=== PATIENT | female | born 1935 | race Asian ===

== ENCOUNTER 2019-07-22 14:31 | Inpatient (IN) | payer OTHER ==
[~2019-07-22] VITALS: Ht 157.5 cm; Wt 49.0 kg
[2019-07-22 15:31] LABS: Basophils # (auto) 0 10 ^3/uL (0-0.2); Eosinophils # (auto) 0.2 10 ^3/uL (0-0.8); Lymphocytes # (auto) 0.5 10 ^3/uL (0.4-5.4); Mean Corpuscular Hgb Conc. 33.6 g/dL (32.0-36.0); Nucleated Red Blood Cells % 0.1 %; Red Cell Distribution Width 16.4 % (11.8-14.3)
[2019-07-22 15:35] LABS: Basophils % (auto) 0.4 % (0.0-2.0); Eosinophils % (auto) 2.4 % (0.0-7.0); Hematocrit 32.7 % (36.0-46.0); Lymphocytes % (auto) 5.6 % (10.0-50.0); Mean Corpuscular Volume 95.2 fL (80.0-100.0); Monocytes # (auto) 0.4 10 ^3/uL (0-1.3); Monocytes % (auto) 4.6 % (0.0-12.0); Neutrophils # (auto) 8.2 10 ^3/uL (1.6-8.6); Platelet Count (auto) 166 10^3/uL (140-450); Red Blood Cells 3.43 10^6/uL (4.0-5.20); White Blood Cell 9.4 10^3/uL (4.4-10.8)
[2019-07-22 15:43] LABS: Albumin 2.1 g/dL (3.4-5.0); Anion Gap 7 (5-15); Carbon Dioxide 25 mmol/L (21-32); Chloride 105 mmol/L (98-107); Glucose 76 mg/dL (74-106); Potassium 4.4 mmol/L (3.5-5.1); Sodium 137 mmol/L (136-145)
[2019-07-22 15:48] LABS: Alanine Aminotransferase 15 U/L (13-56); Alkaline Phosphatase 100 U/L (45-117); Aspartate Aminotransferase 27 U/L (15-37); BUN/Creatinine Ratio 40.9; Bilirubin, Total 0.5 mg/dL (0.2-1.0); Blood Urea Nitrogen 27 mg/dL (7-18); GFR African American 109 mL/min; GFR Non-African American 90 mL/min; Total Protein 6.2 g/dL (6.4-8.2)
[2019-07-22] MEDS ORDERED: SODIUM CHLORIDE 0.9% 1,000 ML IV ONE (16:12)
[2019-07-22 16:30] LABS: Magnesium 1.8 mg/dL (1.6-2.6)
[2019-07-22] MEDS ORDERED: IOHEXOL 300 MG/ML 100ML BOTTLE IJ ONE (16:53)
[2019-07-22 17:27] LABS: Urine Bacteria MANY /hpf (None Seen); Urine Blood Negative /uL (Negative); Urine Specific Gravity 1.015 (1.001-1.035); Urine WBC 25 /hpf (0 - 5)
[2019-07-22] MEDS ORDERED: VANCOMYCIN HCL 500MG/5ML ORAL SOL PO ONE (18:00)
[2019-07-22] MEDS ORDERED: metroNIDAZOLE 500MG/100ML 100 ML IV ONE (18:00)
[2019-07-22] MEDS ORDERED: ONDANSETRON HCL 4 MG/2 ML VIAL IV PRN (20:15)
[2019-07-22] MEDS ORDERED: NITROGLYCERIN 0.4 MG SL TAB SL PRN (20:15)
[2019-07-22] MEDS ORDERED: ACETAMINOPHEN 500 MG TAB PO PRN (20:15)
[2019-07-22] MEDS ORDERED: MORPHINE SULF INJ 2 MG/ML SYRINGE 1ML IV PRN ×2 (20:15)
[2019-07-22] MEDS: D5W/SOD CHLO 0.9% 1,000 ML IV SCH (20:47)
[2019-07-22] MEDS: metroNIDAZOLE 500MG/100ML 100 ML IV SCH (21:37)
[2019-07-22] MEDS: VANCOMYCIN HCL 125MG/5ML ORAL SOL PO SCH (21:42)
[2019-07-22 22:00] VITALS: BP 145/69
--- NOTE | 2019-07-22 23:00 | NUR ---
Telemetry admit from ER [id number] admitted to Telemetry unit after SBAR received. Patient oriented to Kavitha Crowder RN primary RN, unit, room, bed, and unit policies regarding patient care and visiting hours. Patient now on continuous telemetry monitoring, tele box # [id number] and telemetry reading on arrival to unit is SR. Patient weighed by bedscale and encouraged to call if they need something. All questions and concerns addressed, patient verbalized understanding, will continue to monitor Note: []
--- NOTE | 2019-07-22 23:05 | NUR ---
Noted macerations on left labia and left buttocks present on admission. Pictures taken for reference. Wound consult in place. Cleansed wound with cleanser, z-guard applied and covered sacrum with optifoam
[2019-07-23 00:34] VITALS: BP 145/69
[2019-07-23] MEDS ORDERED: CLOP75TA28 PO (01:07)
[2019-07-23] MEDS ORDERED: IRBE150T26 PO (01:07)
[2019-07-23] MEDS ORDERED: ATOR80TA PO (01:07)
[2019-07-23] MEDS ORDERED: PANT40TA2 PO (01:07)
[2019-07-23] MEDS ORDERED: CYAN100L PO (01:07)
[2019-07-23] MEDS ORDERED: SPIR50TA5 PO (01:07)
[2019-07-23] MEDS ORDERED: METF-370 PO (01:07)
[2019-07-23] MEDS ORDERED: FERR-7 PO (01:07)
[2019-07-23] MEDS ORDERED: ASPI-404 PO (01:07)
[2019-07-23] MEDS ORDERED: CARV25TA PO (01:07)
[2019-07-23 05:00] VITALS: BP 153/69
[2019-07-23 05:32] LABS: Basophils # (auto) 0 10 ^3/uL (0-0.2); Basophils % (auto) 0.2 % (0.0-2.0); Eosinophils # (auto) 0.1 10 ^3/uL (0-0.8); Hematocrit 27.7 % (36.0-46.0); Hemoglobin 9.4 g/dL (12.2-16.2); Lymphocytes # (auto) 0.9 10 ^3/uL (0.4-5.4); Lymphocytes % (auto) 17.5 % (10.0-50.0); Mean Corpuscular Hemoglobin 32.2 pg (28.0-32.0); Mean Corpuscular Hgb Conc. 34.1 g/dL (32.0-36.0); Mean Corpuscular Volume 94.5 fL (80.0-100.0); Monocytes # (auto) 0.4 10 ^3/uL (0-1.3); Monocytes % (auto) 8.5 % (0.0-12.0); Neutrophils # (auto) 3.5 10 ^3/uL (1.6-8.6); Neutrophils % (auto) 70.8 % (37.0-80.0); Platelet Count (auto) 140 10^3/uL (140-450); Red Blood Cells 2.93 10^6/uL (4.0-5.20); Red Cell Distribution Width 16.4 % (11.8-14.3); White Blood Cell 4.9 10^3/uL (4.4-10.8)
[2019-07-23 05:50] LABS: Calcium 7.5 mg/dL (8.5-10.1); Potassium 3.5 mmol/L (3.5-5.1)
[2019-07-23] MEDS: VANCOMYCIN HCL 125MG/5ML ORAL SOL PO SCH ×2 (05:58→12:12)
[2019-07-23] MEDS: metroNIDAZOLE 500MG/100ML 100 ML IV SCH ×3 (05:58→21:57)
[2019-07-23] MEDS: D5W/SOD CHLO 0.9% 1,000 ML IV SCH (06:13)
--- NOTE | 2019-07-23 07:35 | NUR ---
Opening Shift Note Assumed care of patient. Pt is awake, alert and Ox4, resting in bed. No S/S of respiratory distress/SOB. Pt reports no pain, nausea, or vomiting. On room air and bedrest. Bed in lowest position, brakes are locked, side rails up x2, call light within reach. Welsh is patent and on bed frame. POC discussed with patient. Patient is instructed to call for assistance as needed. Will continue to monitor for changes Q1hr and PRN.
[2019-07-23] MEDS: cefTRIAXone 1GM/50ML D5W 50 ML IV SCH (08:53)
--- NOTE | 2019-07-23 08:55 | NUR ---
Family updates Received call from pt's daughter. She updated this RN on pt recent medical history such as pt had three stents placed mar 2019, Oct 17, 2019 at [facility]. pt fell suffered pelvic fracture, colon resection was done during that hospital stay at [facility]. pt ended up in rehab facility and discharged home 07/16 and fell out of bed 07/18 per daughter report.
[2019-07-23 09:00] VITALS: BP 135/58
[2019-07-23] MEDS: HYDROcodone-ACET 5/325MG TAB PO PRN (11:17)
--- NOTE | 2019-07-23 11:42 | NUR ---
IMPORT/EXPORT ANALYST AT BEDSIDE.
--- NOTE | 2019-07-23 11:45 | NUR ---
WOUND CARE NOTE: IN TO SEE PATIENT AT THIS TIME PER WOUND CARE CONSULT REQUEST. PATIENT NOTED UPON ADMIT TO HAVE WOUNDS. ALL WOUNDS PHOTOGRAPHED BY BEDSIDE NURSE FOR REFERENCE. PATIENT ADMITTED TO [facility] WITH DIAGNOSIS OF ACUTE CYSTITIS. CURRENT OWEN SCORE IS 14. PATIENT IS ABLE TO ASSIST WITH HER TURNING/REPOSITIONING. PATIENT HAS HISTORY WITH COLON RESECTION FOR CA, HTN, DM2, PELVIC FRACTURE, MS. SHE WAS POSITIVE FOR C-DIFFICILE, CONTINUES TO HAVE MULTIPLE BOUTS WITH INCONTINENT STOOL. SHE IS NOTED TO HAVE MASD/INTERTRIGO TO PERINEUM, SACRUM/BUTTOCKS. SKIN IS BRIGHT TO DARK RED. SHE HAS MULTIPLE AREAS TO THE LEFT BUTTOCK/SACRUM WITH DTI. SHE HAS MULTIPLE SERUM FILLED BLISTERS OVER THE DTI, ONE OPEN BLISTER-STAGE 2 PRESSURE INJURY TO THE LEFT SACRUM. APPLIED ZGUARD, OPTIFOAM GENTLE SACRAL DRESSING. PATIENT HAS INTACT SURGICAL SCARS FROM HER SURGERY LAST MONTH TO THE ABDOMEN. SKIN IS INTACT, SCARS ARE WELL APPROXIMATED. RECOMMEND: FREQUENT TURN SCHEDULE Q HOURS, PRN CONDITION PERMITS, WITH PRESSURE REDISTRIBUTION USING PILLOWS/WEDGES, BID/PRN APPLICATION WITH MOISTURE BARRIER CREAM, OPTIFOAM GENTLE SACRAL DRESSING, SPECIALTY AIR MATTRESS, SKIN/WOUND CARE PLAN, CONTINUED MONITORING BY WOUND CARE TEAM. Addendum: 07/23/19 at 1443 by Sophie Moses RN Amended: Links added.
--- NOTE | 2019-07-23 12:10 | NUR ---
MD BRENDAN WEST.
[2019-07-23 13:00] VITALS: BP 131/54
[2019-07-23 16:25] VITALS: BP 135/60
--- NOTE | 2019-07-23 17:08 | NUR ---
PATIENT TRANSFERRED TO AIR MATTRESS BED. SCD'S ON AND IN PLACE, PILLOWS ELEVATED FOR COMFORT.
[2019-07-23] MEDS ORDERED: ENOXAPARIN SOD 40 MG/0.4 ML SYRINGE SC ONE (17:30)
--- NOTE | 2019-07-23 19:12 | NUR ---
CARE ENDORSED TO ETHEL FRANKS.
--- NOTE | 2019-07-23 19:25 | NUR ---
Opening Shift Note Received report from Yecenia FRANKS. Assumed care of patient, awake and alert. No S/S of distress/SOB or pain. Instructed on POC and to call for assist PRN. Fall precaution measures in place, will continue to monitor for changes Q1hr and PRN.
[2019-07-23] MEDS ORDERED: TEMAZEPAM 15 MG CAP PO ONE (21:15)
[2019-07-23] MEDS: CARVEDILOL 12.5 MG TAB PO SCH (21:56)
[2019-07-23 22:14] VITALS: BP 156/73
[2019-07-24 04:46] VITALS: BP 151/66
[2019-07-24] MEDS: metroNIDAZOLE 500MG/100ML 100 ML IV SCH ×2 (05:52→13:59)
--- NOTE | 2019-07-24 07:50 | NUR ---
Opening Shift Note Assumed care of patient. Pt is awake, alert and oriented x4, resting in bed. No S/S of respiratory distress. Respirations are regular and non-labored. Pt reports no pain. Bed in lowest position, brakes are locked, side rails up x2, call light within reach. Welsh is patent and on bed frame. Pt is on Room air. SCD is applied. POC discussed with patient. Patient is instructed to call for assistance as needed. Will continue to monitor for changes Q1hr and PRN.
[2019-07-24 08:00] VITALS: BP 142/68
[2019-07-24] MEDS: cefTRIAXone 1GM/50ML D5W 50 ML IV SCH (09:18)
[2019-07-24] MEDS: CARVEDILOL 12.5 MG TAB PO SCH ×2 (09:19→22:00)
[2019-07-24] MEDS: ENOXAPARIN SOD 40 MG/0.4 ML SYRINGE SC SCH (09:20)
--- NOTE | 2019-07-24 11:15 | NUR ---
Patient had a bowel movement , cleansed patient's buttocks with warm washcloths, patted dry with washcloth , applied Zgaurd and Optifoam dressing. Changed bed sheets, with the help of GOLDEN Murdock. Patient tolerated well. Will continue to monitor Q 1HR and as needed.
--- NOTE | 2019-07-24 11:53 | NUR ---
Pain reassessment Patient reports decrease in pain level to 1 out of 10. Will continue to monitor.
[2019-07-24 12:00] VITALS: BP 149/73
[2019-07-24] MEDS: HYDROcodone-ACET 5/325MG TAB PO PRN (12:28)
--- NOTE | 2019-07-24 12:50 | NUR ---
DR. CARDONA AT BEDSIDE
--- NOTE | 2019-07-24 14:46 | NUR ---
Nutrition Assessment Notes Please refer to link for full assessment notes. Est energy needs: 0069-2726 kcals (23-25 kcal/kgBW) Est protein needs: 65-108 gms/day (1.2-2.0 gm/kgBW) d/t wounds Will continue to monitor and reassess prn. Addendum: 07/24/19 at [address] Amended: Links added.
[2019-07-24 16:48] VITALS: BP 112/55
--- NOTE | 2019-07-24 19:01 | NUR ---
Closing Note Patient is comfortably siting up in bed , no s/s of distress/sob noted/stated. Bed at lowest locked position and call light within reach. Will endorse care to NOC RN.
[2019-07-24 22:00] VITALS: BP 143/68
[2019-07-24] MEDS: TEMAZEPAM 15 MG CAP PO PRN (22:01)
[2019-07-25 05:00] VITALS: BP 158/81
--- NOTE | 2019-07-25 07:25 | NUR ---
Opening Note Patient is comfortably sitting up in bed, eating breakfast. Bed at lowest locked position and call light within reach. No c/o pain at this time, will continue to monitor Q1hr and as needed.
[2019-07-25 08:00] VITALS: BP 112/55
[2019-07-25] MEDS: cefTRIAXone 1GM/50ML D5W 50 ML IV SCH (08:34)
[2019-07-25] MEDS: CARVEDILOL 12.5 MG TAB PO SCH ×2 (08:35→21:37)
[2019-07-25] MEDS: ENOXAPARIN SOD 40 MG/0.4 ML SYRINGE SC SCH (08:35)
[2019-07-25 09:00] VITALS: BP 131/77
--- NOTE | 2019-07-25 12:56 | NUR ---
BM Patient had a bowel movement , cleansed patient's buttocks with warm washcloths, patted dry with washcloth , applied Zgaurd and Optifoam dressing. Changed bed sheets, with the help of RETRIMMER. Patient tolerated well. Will continue to monitor Q 1HR and as needed.
[2019-07-25 13:00] VITALS: BP 148/70
[2019-07-25] MEDS: HYDROcodone-ACET 5/325MG TAB PO PRN (15:17)
--- NOTE | 2019-07-25 15:19 | NUR ---
Patient c/o lower back pain, rates it /, will medicate per MD orders.
[2019-07-25 17:28] VITALS: BP 165/75
--- NOTE | 2019-07-25 17:44 | NUR ---
patient's blood pressure is 165/75, no s/s of distress/sob noted/stated. No c/o pain. Paged entry level receptionist hospitalist. Awaiting call aback.
[2019-07-25] MEDS: LABETALOL HCL 5 MG/ML 4ML SYRINGE IV PRN (18:47)
--- NOTE | 2019-07-25 19:40 | NUR ---
Opening Shift Note Assumed care of patient, awake and alert. No S/S of distress/SOB or pain. Fall and safety precautions in place. Call light within reach and able to use. Instructed on POC and to call for assist PRN, patient verbalized understanding and in agreement. Will continue to monitor for changes Q1hr and PRN.
--- NOTE | 2019-07-25 19:42 | NUR ---
BM Patient had a bowel movement , cleansed patient's buttocks with warm washcloths, patted dry with washcloth , applied Zgaurd and Optifoam dressing. Changed bed sheets, with the help of CARPENTER LABOR SUPERVISOR. Patient tolerated well.
--- NOTE | 2019-07-25 19:42 | NUR ---
Closing Note Patient is comfortably resting in bed, breath sounds are even and unlabored. No c/o pain. No s/s of distress/sob noted/stated. Bed at lowest locked position and call light is within reach. Care endorsed to [facility] GOLDEN Plunkett.
[2019-07-25 22:00] VITALS: BP 152/69
[2019-07-26 05:46] VITALS: BP 144/67
[2019-07-26 06:38] LABS: Basophils # (auto) 0 10 ^3/uL (0-0.2); Basophils % (auto) 0.4 % (0.0-2.0); Eosinophils # (auto) 0.4 10 ^3/uL (0-0.8); Eosinophils % (auto) 6.2 % (0.0-7.0); Hematocrit 31.4 % (36.0-46.0); Hemoglobin 10.8 g/dL (12.2-16.2); Lymphocytes # (auto) 1.1 10 ^3/uL (0.4-5.4); Lymphocytes % (auto) 15.8 % (10.0-50.0); Mean Corpuscular Hemoglobin 31.9 pg (28.0-32.0); Mean Corpuscular Hgb Conc. 34.5 g/dL (32.0-36.0); Mean Corpuscular Volume 92.3 fL (80.0-100.0); Monocytes # (auto) 0.4 10 ^3/uL (0-1.3); Monocytes % (auto) 5.6 % (0.0-12.0); Neutrophils # (auto) 5.1 10 ^3/uL (1.6-8.6); Nucleated Red Blood Cells % 0.1 %; Platelet Count (auto) 151 10^3/uL (140-450); Red Cell Distribution Width 16.1 % (11.8-14.3); White Blood Cell 7.1 10^3/uL (4.4-10.8)
[2019-07-26 06:50] LABS: INR 1.26 (0.9-1.15); Partial Thromboplastin Time 35.2 sec (23.64-32.05)
[2019-07-26 07:39] LABS: BUN/Creatinine Ratio 11.9; Calcium 7.8 mg/dL (8.5-10.1); Magnesium 1.6 mg/dL (1.6-2.6)
[2019-07-26 07:40] LABS: Albumin 1.9 g/dL (3.4-5.0); Bilirubin, Total 0.4 mg/dL (0.2-1.0); Phosphorus 2.1 mg/dL (2.5-4.90); Total Protein 5.7 g/dL (6.4-8.2)
[2019-07-26 07:53] LABS: Potassium 2.8 mmol/L (3.5-5.1)
--- NOTE | 2019-07-26 07:57 | NUR ---
K = 2.8*L as per Laboratory.
--- NOTE | 2019-07-26 07:59 | NUR ---
Paged the hospitalist exceptional needs teacher for the low Potassium level. Waiting for MD to call back.
--- NOTE | 2019-07-26 08:00 | NUR ---
Patient sitting up in bed, eating breakfast. No acute distress noted. On Welsh catheter draining clear, yellowish urine.
[2019-07-26] MEDS: cefTRIAXone 1GM/50ML D5W 50 ML IV SCH (08:02)
--- NOTE | 2019-07-26 08:30 | NUR ---
Patient had a bowel movement in bed. Moderate dark brown, soft, formed stools noted on the pad. GOLDEN Keller and I cleaned the patient. Wound/sore/dry skin noted on the sacral/buttocks area. Skin protectant applied. Changed the pad cair. Reposition the patient for comfort.
[2019-07-26] MEDS: HYDROcodone-ACET 5/325MG TAB PO PRN ×3 (08:38→23:32)
--- NOTE | 2019-07-26 08:38 | NUR ---
Patient stated her buttock/back hurts, pain level at 6/10. [place] 5/325 PO given for pain as ordered.
[2019-07-26 09:00] VITALS: BP 143/66
[2019-07-26] MEDS: CARVEDILOL 12.5 MG TAB PO SCH ×2 (10:29→21:07)
[2019-07-26] MEDS: ENOXAPARIN SOD 30 MG/0.3 ML SYRINGE SC SCH (10:30)
--- NOTE | 2019-07-26 10:45 | NUR ---
Patient sitting up in chair for Physical Therapy. RPT Seamus to come back when patient is ready to go back to bed.
--- NOTE | 2019-07-26 11:10 | NUR ---
Patient back to bed.
--- NOTE | 2019-07-26 12:55 | NUR ---
Dr. Siddiqui at bedside. MD made aware of current K = 2.8*L. Dr. Siddiqui ordered Potassium 20 mEQ IVPB rider once, Potassium Effervescent 50 mEQ tab for five days starting today, NS with Potassium 40mEQ at 75 ml/hr.
[2019-07-26 13:00] VITALS: BP_SYST 110; BP_DIAS 52; BP_DIAS 65
[2019-07-26] MEDS ORDERED: POTASSIUM CHL 20MEQ/100ML 100 ML IV ONE (13:00)
--- NOTE | 2019-07-26 13:18 | NUR ---
Called the Pharmacy to verify the new orders for Potassium.
[2019-07-26] MEDS: POTASSIUM EFFERVESENT TAB 25 MEQ PO SCH (13:30)
[2019-07-26] MEDS: SOD CHL 0.9%/ KCL 40MEQ 1,000 ML IV SCH (13:31)
--- NOTE | 2019-07-26 13:40 | NUR ---
New IV line started on the right wrist, 22 gauge, in one attempt, intact and patent. Patient able to tolerate it.
[2019-07-26 16:53] VITALS: BP 146/77
--- NOTE | 2019-07-26 17:00 | NUR ---
Patient had a bowel movement. Small, soft, formed, brown stools noted. Cleaned the patient.
--- NOTE | 2019-07-26 17:20 | NUR ---
Patient stated her hip and buttock area hurts. [place] 5/325 PO given for pain as ordered.
--- NOTE | 2019-07-26 18:00 | NUR ---
Patient sitting up in bed, eating dinner.
[2019-07-26 19:28] LABS: BUN/Creatinine Ratio 14.9; Potassium 5.2 mmol/L (3.5-5.1)
--- NOTE | 2019-07-26 19:45 | NUR ---
Opening Shift Note Assumed care of patient, awake and alert. No S/S of distress/SOB or pain. Fall and safety precautions in place. Instructed on POC and to call for assist PRN, patient verbalized understanding and in agreement. Call light within reach and able to use. Will continue to monitor for changes Q1hr and PRN.
[2019-07-26] MEDS: TEMAZEPAM 15 MG CAP PO PRN (21:07)
[2019-07-26 22:00] VITALS: BP 127/59
[2019-07-27] MEDS: SOD CHL 0.9%/ KCL 40MEQ 1,000 ML IV SCH (02:07)
[2019-07-27] MEDS: LABETALOL HCL 5 MG/ML 4ML SYRINGE IV PRN ×2 (04:28→17:49)
--- NOTE | 2019-07-27 04:28 | NUR ---
High Blood Pressure Patient's blood pressure 154/71 mm Hg on right arm in semi-fowlers position. Heart rate 82 bpm. Per prn order, labatelol given at this time (see emar for administration). Patient educated on indication, verbalized understanding and in agreement. Will continue to monitor.
[2019-07-27 05:00] VITALS: BP 154/71
--- NOTE | 2019-07-27 05:53 | NUR ---
BP Recheck Patient's blood pressure 148/73; heart rate 87 bpm. Will continue to monitor. Addendum: 07/27/19 at 0554 by ROWDY CAGLE RN RN time correction of recheck: [id number]
[2019-07-27 06:10] LABS: Potassium 5.5 mmol/L (3.5-5.1)
[2019-07-27 06:28] LABS: Calcium 7.7 mg/dL (8.5-10.1)
[2019-07-27 06:39] LABS: BUN/Creatinine Ratio 16.2
--- NOTE | 2019-07-27 07:20 | NUR ---
Opening Shift Note Assumed care of patient, awake and alert. No S/S of distress/SOB or pain. Instructed on POC and to call for assistance as needed, call light within reach. Safety measures in place, bed set to lowest locked position. Will continue to monitor for changes Q1hr and PRN.
[2019-07-27 08:00] VITALS: BP 154/79
[2019-07-27] MEDS: ENOXAPARIN SOD 30 MG/0.3 ML SYRINGE SC SCH (08:58)
[2019-07-27] MEDS: cefTRIAXone 1GM/50ML D5W 50 ML IV SCH (08:59)
[2019-07-27] MEDS: CARVEDILOL 12.5 MG TAB PO SCH ×2 (09:00→21:54)
[2019-07-27] MEDS: HYDROcodone-ACET 5/325MG TAB PO PRN (09:09)
[2019-07-27] MEDS: POTASSIUM EFFERVESENT TAB 25 MEQ PO SCH (09:13)
[2019-07-27] MEDS ORDERED: D5W/SOD CHL 0.45%/KCL 20MEQ 1,000 ML IV SCH (10:30)
[2019-07-27] MEDS ORDERED: GASTROGRAFIN 120 ML SOL ONE (10:35)
[2019-07-27 12:00] VITALS: BP 143/73
--- NOTE | 2019-07-27 12:15 | NUR ---
MD CARDONA AT BEDSIDE UPDATED MD ON PATIENT'S STATUS. INCLUDING POTASSIUM LEVEL OF 5.5. INFORMED HER IV HAS BEEN STOPPED AND PO POTASSIUM WAS HELD. INFORMED HER, PATIENT REFUSED KUB AND MD ORDERED CT WITH ORAL CONTRAST. WILL FOLLOW THROUGH WITH ORDERS.
[2019-07-27] MEDS ORDERED: OMNIPAQUE ORAL SOLN 500ml 12mg/ml PO ONE (12:25)
--- NOTE | 2019-07-27 15:31 | NUR ---
Patient refused to be OOB today after both am and pm attempts. GOLDEN Fisher was notified. Addendum: 07/27/19 at 1532 by BRISSA CASTRO PTT Amended: Links added.
--- NOTE | 2019-07-27 15:36 | NUR ---
assessment re: ss consult disposition Patient is a 84 year old female who is hard of hearing and some what confused. Prior to admission per eli son Ion patient lived home with his and needed assistance. Patient has a fww for home use. Patients PCP is Dr Crisostomo. Per Ion patient will return home with him on discharge and he will transport patient home. I informed Ion he has a right to speak to a director social regarding all care. I informed Ion he has a right to participate in any and all discharge planning. Patient does not have a POA and advanced directive. I have offered Ion information on POA and advanced directives. I informed Ion the advantages and benefits of having an Advanced Directive. Ion verbalized understanding and agreed to discharge plan home on discharge. Addendum: 07/27/19 at 1545 by Steph LOBATO Amended: Links added.
--- NOTE | 2019-07-27 16:00 | NUR ---
PATIENT REFUSED CT SCAN ORDERED BY DR. CARDONA. PAGED DR. BATISTA AND BRENDAN. AWAITING CALL BACK
[2019-07-27 16:58] VITALS: BP 162/77
--- NOTE | 2019-07-27 17:25 | NUR ---
WENT TO ADMINISTER WARFARIN TO PATIENT AND PER PATIENT HE ALREADY ADMINISTERED HOME WARFARIN WHEN MEDICATIONS WERE BROUGHT TO BEDSIDE. INFORMED PATIENT HE WAS NOT SUPPOSE TO TAKE THE MEDICATIONS SAID EARLIER AND PATIENT VERBALIZED UNDERSTANDING. PER PATIENT HE HAS TAKEN HIS WARFARIN REGIMEN ORDERED AND HAS BEEN DOING THIS FOR 11 YEARS. INFORMED PATIENT WE ARE MONITORING HIS INR AND PHARMACY ADJUSTS THE DOSE OF THE WARFARIN. PATIENT VERBALIZED UNDERSTANDING. JAME HOSPITALIST. AWAITING CALL BACK Addendum: 07/27/19 at 1815 by Natalia Gasca RN RN WRONG PATIENT
--- NOTE | 2019-07-27 19:15 | NUR ---
CLOSING SHIFT NOTE ENDORSED CARE TO CLINICAL LAW PROFESSOR GOLDEN GAONA. PATIENT HAS NO S/S OF DISTRESS/SOB OR PAIN AT THIS TIME.
--- NOTE | 2019-07-27 19:33 | NUR ---
Opening Shift Note Received report and assumed care of patient. Patient is awake and alert. No signs or symptoms of distress noted, patient currently denies pain. Instructed patient on plan of care and to call for assistance as needed, call light within reach. Will continue to monitor.
--- NOTE | 2019-07-27 19:42 | NUR ---
IV removal/insertion 22g IV to Right wrist and 20g IV to Left forearm reddened. Discontinued IVs with clean technique, catheter tips fully intact. Pressure dressing applied to sites. NOTE: Inserted 22g IV to the Right forearm. Patient tolerated procedure well.
[2019-07-27] MEDS: TEMAZEPAM 15 MG CAP PO PRN (21:54)
[2019-07-27 22:00] VITALS: BP 133/65
[2019-07-28 05:49] VITALS: BP 125/65
[2019-07-28 06:37] LABS: Calcium 7.9 mg/dL (8.5-10.1); Potassium 4.3 mmol/L (3.5-5.1)
[2019-07-28 06:39] LABS: BUN/Creatinine Ratio 15.4
[2019-07-28 09:08] VITALS: BP 132/69
[2019-07-28] MEDS: POTASSIUM EFFERVESENT TAB 25 MEQ PO SCH ×2 (09:17→10:00)
[2019-07-28] MEDS: cefTRIAXone 1GM/50ML D5W 50 ML IV SCH (09:17)
[2019-07-28] MEDS: CARVEDILOL 12.5 MG TAB PO SCH (09:21)
[2019-07-28] MEDS: ENOXAPARIN SOD 30 MG/0.3 ML SYRINGE SC SCH (09:21)
--- NOTE | 2019-07-28 10:00 | NUR ---
POTASSIUM MEDICATION MED HELD, POTASSIUM 4.3 WILL REASSESS AND NOTIFY MD.
[2019-07-28] MEDS: HYDROcodone-ACET 5/325MG TAB PO PRN (11:05)
--- NOTE | 2019-07-28 11:30 | NUR ---
Doctor Ra informed that potassium medication was held per MD "okay to hold"
--- NOTE | 2019-07-28 13:10 | NUR ---
BUTTON SAWYER informed me patient blood pressure was 157/79 I reassessed patients blood pressure it was 118/50 no PRN needed at this time will continue to monitor.
[2019-07-28 13:22] VITALS: BP 157/79
[2019-07-28 13:23] VITALS: BP 118/50
--- NOTE | 2019-07-28 15:42 | NUR ---
Patient refused PT. GOLDEN Rudolph was notified. Addendum: 07/28/19 at 1543 by BRISSA CASTRO PTT Amended: Links added.
--- NOTE | 2019-07-28 16:00 | NUR ---
Spoke with doctor Knapp about Patient requesting if she can be discharged home tomorrow per Md "Patient is to be discharged today" Md also stated "patient has been refusing PT and test patient can d/c home". Patient informed that she is going to be discharged home today.
[2019-07-28 16:54] VITALS: BP 158/76
--- NOTE | 2019-07-28 17:00 | NUR ---
Spoke with patient son Jacky per son he will be here at 1830 to hand picker patient
[2019-07-28 17:20] VITALS: BP 149/78
--- NOTE | 2019-07-28 19:00 | NUR ---
Discharge instructions given as ordered. Encourage to follow up with PMD as instructed. All questions and concerns addressed. Patient verbalized understanding. Medication reconciliation form completed and copy given to patient. No home medications held in Pharmacy and none returned to patient, and no needed vaccines given. IV removed with catheter intact, pressure dressing applied, hendrickson catheter removed. Telemetry unit returned to ICU. Patient taken to vehicle via wheelchair with all personal belongings, accompanied by staff. Family members waiting at front entrance to transport patient home. No distress noted at time of departure.
== END 2019-07-28 17:00 | disposition home or self-care (01) | DRG 689 ==
LOC: EDBD 14:31 → ER 14:31 → TELE 14:32 → TELE-WESTW 22:01
PROVIDERS: ADMIT Nurse Practitioner Acute Care; ATTEND Internal Medicine Nephrology
DX: N10 Acute pyelonephritis (principal); L89.153 Pressure ulcer of sacral region, stage 3; L89.313 Pressure ulcer of right buttock, stage 3; E44.0 Moderate protein-calorie malnutrition; K57.30 Diverticulosis of large intestine without perforation or abscess without bleeding; I50.9 Heart failure, unspecified; E87.6 Hypokalemia; F03.90 Unspecified dementia, unspecified severity, without behavioral disturbance, psychotic disturbance, mood disturbance, and anxiety; E11.649 Type 2 diabetes mellitus with hypoglycemia without coma; I11.0 Hypertensive heart disease with heart failure; I25.10 Atherosclerotic heart disease of native coronary artery without angina pectoris; B96.1 Klebsiella pneumoniae [K. pneumoniae] as the cause of diseases classified elsewhere; E87.5 Hyperkalemia; L89.322 Pressure ulcer of left buttock, stage 2; Z91.81 History of falling; Z90.49 Acquired absence of other specified parts of digestive tract; Z98.61 Coronary angioplasty status; I25.2 Old myocardial infarction; Z85.038 Personal history of other malignant neoplasm of large intestine; K52.9 Noninfective gastroenteritis and colitis, unspecified; Z68.21 Body mass index [BMI] 21.0-21.9, adult
CPT/HCPCS: 36415; 70450; 71045; 73502; 74018; 74177; 76705; 80048; 80053; 81001; 82962; 83036; 83690; 83735; 84100; 84484; 85025; 85610; 85730; 87040; 87045; 87081; 87086; 87088; 87186; 87427; 87493; 93005; 97116; 97163; 97530; G0378; J0696; J2405; J3480; J3490; J7042